=== PATIENT | male | born 1975 | race Caucasian/White ===

== ENCOUNTER 2020-08-08 07:54 | Emergency (ER) | payer SELFPAY ==
[~2020-08-08] VITALS: Ht 190.5 cm; Wt 127.0 kg
[2020-08-08 08:02] VITALS: Ht 190.5 cm; Wt 127.0 kg
[2020-08-08 08:25] LABS: BASOPHIL % 1.4 % (0-2); PLATELET COUNT 371 x10^3mcL (130-400); RED CELL DISTRIBUTION WIDTH 13.6 % (11.5-14.5)
[2020-08-08 08:29] LABS: CALCIUM 9.4 mg/dL (8.5-10.1); CARBON DIOXIDE 24.5 mmol/L (21-32); CHLORIDE SERUM 103 mmol/L (98-107); CREATININE SERUM 1.3 mg/dL (0.7-1.3); GFR1 > 60 mL/min; GLUCOSE SERUM 158 mg/dL (74-106); POTASSIUM SERUM 3.9 mmol/L (3.5-5.1); SODIUM SERUM 135 mmol/L (136-145)
[2020-08-08 08:34] LABS: ALBUMIN 3.6 g/dL (3.4-5.0); ALKALINE PHOSPHATASE 84 U/L (46-116); ALT/SGPT 111 U/L (16-63); AST/SGOT 39 U/L (15-37); BILIRUBIN TOTAL 0.5 mg/dL (0.20-1.00); TOTAL PROTEIN, SERUM 7.1 g/dL (6.4-8.2)
[2020-08-08 09:56] VITALS: BP 149/93
== END 2020-08-08 09:56 | disposition home or self-care (01) ==
LOC: ED 07:54
PROVIDERS: Emergency Medicine
DX: R53.1 Weakness (principal); R42 Dizziness and giddiness; R07.89 Other chest pain; F15.10 Other stimulant abuse, uncomplicated; F17.210 Nicotine dependence, cigarettes, uncomplicated; R03.0 Elevated blood-pressure reading, without diagnosis of hypertension; R19.7 Diarrhea, unspecified
CPT/HCPCS: 99406; J2060; J7030